=== PATIENT | female | born 1965 | race African-American/Black ===

== ENCOUNTER 2018-11-16 16:31 | Emergency (ER) | payer OTHER ==
[~2018-11-16] VITALS: Ht 165.1 cm; Wt 185.0 kg
[2018-11-16 18:26] LABS: EOSINOPHILS % 4.8 % (0.0-5.0); HEMATOCRIT. 33.2 % (36.0-48.0); HEMOGLOBIN. 10.6 g/dL (12.0-16.0); LYMPHOCYTES % 12.3 % (20.0-50.0); MEAN CORPUSCULAR HEMOGLOBIN 22.7 pg (28.0-32.0); MEAN CORPUSCULAR VOLUME 71.3 fL (81.0-99.0); MEAN PLATELET VOLUME 6.7 fl (7.4-10.4); MONOCYTES % 4.6 % (2.0-8.0); NEUTROPHILS % 77.3 % (40.0-76.0); PLATELET 745 x1000/uL (130-400); RED BLOOD CELL COUNT 4.66 mill/uL (4.2-5.4); RED CELL DISTRIBUTION WIDTH 16.8 % (11.6-14.6)
[2018-11-16 18:34] LABS: CHLORIDE 106 mEq/L (98-107)
[2018-11-16 19:06] LABS: CREATINE KINASE 5238 IU/L (26-192)
[2018-11-16] MEDS ORDERED: PREDNISONE 20MG TABLET PO ONE (19:30)
[2018-11-16] MEDS ORDERED: SODIUM CHLORIDE 0.9% 1,000 ML IV ONE (19:30)
[2018-11-16 22:45] LABS: CLARITY URINE CLEAR (CLEAR); COLOR URINE YELLOW (YELLOW); KETONES URINE NEGATIVE (NEGATIVE); LEUKOCYTE ESTERASE URINE 1+ (NEGATIVE); NITRITE URINE NEGATIVE (NEGATIVE); OCCULT BLOOD URINE 2+ (NEGATIVE); PH URINE 5.5 (4.5-8.0); PROTEIN URINE TRACE (NEGATIVE); SPECIFIC GRAVITY URINE 1.015 (1.005-1.030)
[2018-11-17 01:31] VITALS: BP 151/71
== END 2018-11-17 02:48 | disposition short-term general hospital (02) ==
LOC: ER 17:54 → CANBEDREQ 11-17 04:18
DX: M60.9 Myositis, unspecified (principal); E11.9 Type 2 diabetes mellitus without complications; I10 Essential (primary) hypertension; Z88.0 Allergy status to penicillin
CPT/HCPCS: 36415; 71045; 80053; 81003; 82550; 85025; 85651; 86141; 93005; 99285; J7030; J7512

== ENCOUNTER 2020-07-06 23:09 | Emergency (ER) | payer OTHER ==
[~2020-07-06] VITALS: Ht 165.1 cm; Wt 227.0 kg
[~2020-07-06 23:09] MED LIST: ETOMIDATE 2MG/ML 10ML VIAL IV ONE; SUCCINYLCHOLINE CHLORIDE 200MG/10ML IV ONE
[2020-07-06 23:10] VITALS: BP 155/83
[2020-07-06] MEDS ORDERED: FUROSEMIDE 40MG/4ML VIAL IV ONE (23:30)
[2020-07-06] MEDS ORDERED: NITROGLYCERIN OINT 1GM/INCH UDPKT TD ONE (23:30)
[2020-07-06] MEDS ORDERED: PROPOFOL 10MG/ML 100ML 100 ML IV SCH (23:30)
[2020-07-06 23:39] LABS: HEMOGLOBIN. 11.9 g/dL (12.0-16.0); MEAN CORPUSCULAR HEMOGLOBIN 23.4 pg (28.0-32.0); MEAN CORPUSCULAR VOLUME 80.8 fL (81.0-99.0); MEAN PLATELET VOLUME 9.3 fl (7.4-10.4); PLATELET 504 x1000/uL (130-400); RED BLOOD CELL COUNT 5.08 mill/uL (4.2-5.4); RED CELL DISTRIBUTION WIDTH 18.5 % (11.6-14.6)
[2020-07-06 23:42] LABS: CHLORIDE 102 mEq/L (98-107)
[2020-07-07 05:52] LABS: PLATELET ESTIMATE INCREASED
== END 2020-07-07 02:15 ==
LOC: ER 23:09 → CANBEDREQ 07-07 05:47
DX: I46.9 Cardiac arrest, cause unspecified (principal); J81.1 Chronic pulmonary edema; I21.9 Acute myocardial infarction, unspecified; I10 Essential (primary) hypertension; J44.1 Chronic obstructive pulmonary disease with (acute) exacerbation; E11.9 Type 2 diabetes mellitus without complications; Z88.0 Allergy status to penicillin; Z98.890 Other specified postprocedural states
CPT/HCPCS: 31500; 36415; 80053; 83880; 84484; 85025; 92950; 93005; 99291; J0330; J1940; J2704; J3490; Z7610; 94002